=== PATIENT | female | born 2000 | race Caucasian/White ===

== ENCOUNTER → 2020-11-26 07:03 | Outpatient (CLI) | payer OTHER, SELFPAY ==
[2020-11-26 19:12] LABS: SARS-CoV-2 RNA PCR Negative
== END ==
PROVIDERS: PCP Pediatrics; Visit Provider Pediatrics
DX: Z20.822 Contact with and (suspected) exposure to COVID-19 (principal); R06.7 Sneezing
CPT/HCPCS: C9803; U0003; U0005

== ENCOUNTER → 2022-03-03 13:35 | Outpatient (CLI) | payer OTHER, SELFPAY ==
--- NOTE | ~2022-03-03 | CT_ITS ---
EXAMINATION: CT soft tissue neck wo con DATE: 03/03/2022 14:03 INDICATION: Dysphagia. TECHNIQUE: Computed tomography (CT) of the neck was performed without intravenous contrast. Automated exposure control and iterative reconstruction technique were employed. The dose-length product was 6 23.96 mGy-cm. COMPARISON: None FINDINGS: Motion artifact is noted. There are no pathologically enlarged lymph nodes. The pharynx and larynx are normal. The paranasal sinuses are clear. The mastoid air cells are normal. IMPRESSION: 1. No etiology for the patient's symptoms. Reviewed, dictated and finalized at location A.
== END ==
PROVIDERS: PCP Pediatrics; Visit Provider Otolaryngology
DX: R13.10 Dysphagia, unspecified (principal)
CPT/HCPCS: 70490

== ENCOUNTER 2022-03-07 10:19 | Outpatient (CLI) | payer OTHER, SELFPAY ==
--- NOTE | ~2022-03-07 | XR_ITS ---
EXAMINATION: XR barium swallow modified DATE: 03/07/2022 11:21 INDICATION: Dysphagia. TECHNIQUE: The patient was given barium-containing material of multiple consistencies to swallow by t katie speech pathologist while I performed fluoroscopy. Fluoroscopy exposure time was 1.0 minutes. The n umber of fluoroscopy images saved to the PACS was 1. Dose-area product was 1.304 Gy-cm^2. FINDINGS: There is reduced labial seal/lip tension. There is reduced lingual movement. There was uncontrolled b olus with premature spill. There is brief pooling in the pyriform sinuses with the swallow. There is intermittent laryngeal penetration. No aspiration. IMPRESSION: 1. Intermittent laryngeal penetration. No aspiration. 2. Please refer to the speech therapy report for recommendations. Reviewed, dictated and finalized at location A.
--- NOTE | 2022-03-07 12:26 | STOPEVAL ---
MODIFIED BARIUM SWALLOW EVALUATION: Thank you for referring Courtney Lal to [facility] [place] [facility] [place] Attending Provider: Bartolome Feldman MD fax: [phone] Referring Provider: Devyn Francois MD fax: [phone] Modified Barium Swallow Evaluation Recent Swallowing History Reports Dysphagia Yes: gagging and choking History of Dysphagia No Other Related History cerebral palsy History of Pneumonia No Reported Difficult Consistencies Unable to Identify Intake Method Prior to Swallow Oral Evaluation Diet Prior to Swallow Evaluation Regular, Level 7 Liquid Consistency Prior to Swallow Thin (0) Evaluation Consistency Solid Consistency Oral Preparatory Symptoms Loss of Bolus Control Oral Phase Symptoms Disturbed Lingual Movement, Uncontrolled Bolus Pharyngeal Phase Symptoms Within Functional Limits 8 Point Laryngeal Penetration-Aspiration Material Does Not Enter Airway Scale Cervical/Esophageal Symptoms Within Functional Limits Mixed Consistency Method of Presentation Spoon Oral Preparatory Symptoms Abnormal Bolus Hold,Loss of Bolus Control,Premature Spill Posterior Oral Phase Symptoms Disturbed Lingual Movement, Uncontrolled Bolus Pharyngeal Phase Symptoms Laryngeal Penetration 8 Point Laryngeal Penetration-Aspiration Material Enters the Airway, Scale Remains Above Vocal Folds, is Ejected Pharyngeal Phase Comments intermittent laryngeal penetration; no gross aspiration Cervical/Esophageal Symptoms Within Functional Limits Pureed Consistency Method of Presentation Spoon Oral Preparatory Symptoms Premature Spill Posterior Oral Phase Symptoms Disturbed Lingual Movement, Premature Spillage, Uncontrolled Bolus Pharyngeal Phase Symptoms Within Functional Limits 8 Point Laryngeal Penetration-Aspiration Material Does Not Enter Airway Scale Thin Uncontrolled 1 Other Amount cup and straw Method of Presentation Cup Oral Preparatory Symptoms Anterior Loss,Loss of Bolus Control,Premature Spill Posterior Oral Phase Symptoms Disturbed Lingual Movement, Premature Spillage, Uncontrolled Bolus Pharyngeal Phase Symptoms Laryngeal Penetration 8 Point Laryngeal Penetration-Aspiration Material Enters the Airway, Scale Remains Above Vocal Folds, is Ejected Pharyngeal Phase Comments intermittent laryngeal
== END 2022-03-07 10:20 | disposition home or self-care (01) ==
PROVIDERS: PCP Pediatrics; Visit Provider Otolaryngology
DX: R13.10 Dysphagia, unspecified (principal)
CPT/HCPCS: 92611

== ENCOUNTER 2022-05-19 18:09 | Observation (INO) | payer OTHER, SELFPAY ==
[2022-05-19] VITALS (22 sets, daily range): BP systolic 94–135; BP diastolic 57–93; PULSE 136–168; RESP 30–48; TEMP 36.9; O2SAT 84–100
--- NOTE | ~2022-05-19 | XR_ITS ---
EXAMINATION: XR chest 1V portable DATE: 05/19/2022 18:47 INDICATION: Shortness of breath. TECHNIQUE: A single frontal view of the chest was obtained on 2 radiographs. COMPARISON: Neck CT 03/03/2022 FINDINGS: The chest demonstrates clear lungs without pneumonia, pleural effusion, or pneumothorax. Th e heart size is normal. IMPRESSION: 1. No acute cardiopulmonary disease. Reviewed, dictated and finalized at location A.
--- NOTE | ~2022-05-19 | CT_ITS ---
EXAMINATION: CTA chest PE protocol DATE: 05/20/2022 13:25 INDICATION: Tachypnea and shortness of breath TECHNIQUE: Computed tomography angiography (CTA) of the chest was performed with 100 mL Omnipaque-350 intravenous contrast timed to evaluate the pulmonary arteries. Coronal maximum intensity projection 3D-reconstructions were created by the technologist. The dose-length product (DLP) was 164.29 mGy-cm. Automated exposure control and iterative reconstruction technique were employed. COMPARISON: None. FINDINGS: Respiratory motion artifact limits the examination. No central pulmonary embolus is identif ied. There are minimal retrocardiac airspace opacities of the left lower lobe. No pleural effusion or pneumothorax. No pathologically enlarged thoracic lymph nodes are identified. The heart size is norm al. IMPRESSION: 1. No central pulmonary embolus identified, sensitivity significantly limited by respiratory motion. 2. Minimal left lower lobe airspace opacity, consistent with atelectasis versus pneumonia. Reviewed, dictated and finalized at location A. IMPRESSION: 1. No central pulmonary embolus identified, sensitivity significantly limited b y respiratory motion. 2. Minimal left lower lobe airspace opacity, consistent with atelectasis versus pneumonia.
--- NOTE | ~2022-05-19 | XR_ITS ---
EXAMINATION: XR chest 1V portable DATE: 05/23/2022 06:40 INDICATION: Recheck of pneumonia TECHNIQUE: frontal view of the chest was obtained. COMPARISON: Chest radiograph dated 05/19/[address] dated 05/20/2022 FINDINGS: The lungs remain clear with no focal airspace opacities, pulmonary edema, pleural effusion or pneumot horax. Arch size is normal. There is increased prominence of the contour of the pulmonary outflow tra ct and enlargement of the central pulmonary arteries consistent with pulmonary arterial hypertension. Thoracic dextroscoliosis. IMPRESSION: 1. Enlargement of the central pulmonary arteries consistent with pulmonary arterial hypertension. Reviewed, dictated and finalized at location A. IMPRESSION: 1. Enlargement of the central pulmonary arteries consistent with pulmonary martha rial hypertension.
--- NOTE | 2022-05-19 18:25 | ED.SOB ---
HPI - SOB/Dyspnea General Chief Complaint: Shortness of Breath/Dyspnea Stated Complaint: sob Time Seen by Provider: 05/19/22 18:12 History of Present Illness HPI Narrative: Patient is a 21-year-old female with a history of cerebral palsy presenting with shortness of breath. Patient's mother reports that she has a long history of recurrent aspiration and she often wheezes when she breathes. Patient's mother states that for the last several days she has had nasal congestion and cough. Patient's mother states that she has had similar symptoms. Today, patient's mother gave her a breathing treatment which temporarily improved her breathing but then she began wheezing again so she came in for evaluation. Patient is nonverbal at baseline. Related Data Home Medications Medication Instructions Recorded Confirmed albuterol sulfate 0.63 mg/3 mL 0.63 mg inhalation Q6H 12/27/21 05/20/22 solution for nebulization alprazolam 0.5 mg tablet (Xanax) 0.5 mg PO QID PRN Respiratory 12/27/21 05/20/22 Distress buspirone 5 mg tablet 5 mg PO DAILY 12/27/21 05/20/22 fluticasone propionate 50 1 spray intranasal DAILY 12/27/21 05/20/22 mcg/actuation nasal spray,suspension norethindrone 1 mg-ethinyl 1 tablet PO DAILY 05/20/22 05/20/22 estradiol 20 mcg (21)-iron 75 mg (7) tablet ([place] Fe 08/18 (28)) Allergies Allergy/AdvReac Type Severity Reaction Status Date / Time aripiprazole Allergy Severe INSOMNIA Verified 01/19/22 00:32 chlorpheniramine AdvReac Severe INSOMNIA Verified 01/19/22 00:32 dextromethorphan AdvReac Severe INSOMNIA Verified 01/19/22 00:32 phenylephrine AdvReac Severe INSOMNIA Verified 01/19/22 00:32 sertraline AdvReac Severe INSOMNIA Verified 01/19/22 00:32 Review of Systems Review of Systems: ROS unobtainable: Yes other (nonverbal at baseline) [facility] Family History Family History (Updated 05/20/22 @ 00:37 by Kadi Roe RN) Mother Asthma Other Colon cancer Social History Social History (Updated 12/27/21 @ 11:42 by Ingrid Hairston MA) Smoking status: Never smoker Second hand tobacco smoke exposure: Yes Alcohol intake: never Substance use: never Spiritual care concerns: No Has the Lack of Transportation Kept You From Medical Appointments or From Getting Medications?: No Within the Past 12 Months, Were You Worried Whether Your Food Would Run Out Before You Got Money to Buy More?: Never True What is Your Housing Situation Today?: I Have Housing Are You Worried That in the Next 2 Months, You May Not Have Your Own Housing to Live In?: No Do You Have Trouble Paying Your Heating Or Electricity Bill?: No Do You Have Trouble Paying For Medicines?: No Are You Currently Unemployed and Looking for Work?: No Highest Level of Education Completed: High School Diploma/GED Do You Have Trouble With Childcare or the Care of a Family Member?: No Exam Narrative: GENERAL: ill appearing, alert, nonverbal HEAD: Normocephalic, atraumatic. EYES: PERRLA and EOMI. ENT: Nares clear, no rhinorrhea or epistaxis. Mucous membranes moist. NECK: Supple. CHEST: +wheezing, coarse breath sounds bilaterally. No respiratory distress. HEART: Regular rate and rhythm. No murmur heard. Normal peripheral pulses. ABDOMEN: Soft, nontender, nondistended, normal active bowel sounds. EXTREMITIES: Normal range of motion. No edema. SKIN: Warm, dry, no rash. NEURO: No focal deficits. at baseline PSYCH: Normal mood and affect. Course Course Emergency Course: Patient is a 21-year-old female presenting with shortness of breath. Patient tachycardic in the 150s to 160s but normotensive and saturating 90s. Patient is tachypneic and very wheezy. Breathing treatments and steroids ordered. Chest x-ray shows no acute abnormalities. Blood work with leukocytosis. Patient's respiratory effort has improved after steroids and breathing treatments but she still remains significantly tachypneic. EKG shows sinus tachyc
[2022-05-19] MEDS: ALBUTEROL SULFATE NEB 2.5 MG/3 ML INH 10 MG INHALATION ×2 (18:36→19:48)
[2022-05-19 18:37] LABS: Basophils Percent Auto 0.3 % (0.2-1.2); Eosinophils Absolute Auto 0.2 K/mm3 (0-0.3); Eosinophils Percent Auto 1.3 % (0-4.4); Hemoglobin 14.8 g/dL (12.0-15.0); Immature Granulocyte Absolute 0.04 K/mm3 (0.00-0.031); Immature Granulocyte Percent A 0.3 % (0-0.5); Lymphocytes Absolute Auto 1.36 K/mm3 (0.9-3.2); Lymphocytes Percent Auto 10.2 % (18.3-44.2); Mean Corpuscular HGB Conc 32.2 g/dl (32-36); Mean Corpuscular Hemoglobin 28.8 pg (26-34); Mean Corpuscular Volume 89.7 fl (80-100); Mean Platelet Volume 9.4 fl (7.4-10.4); Monocytes Absolute Auto 0.7 K/mm3 (0.1-0.6); Monocytes Percent Auto 5.6 % (2.6-8.5); Neutrophils Percent Auto 82.3 % (45.5-73.1); Platelet Count Result 252 k/mm3 (150-375); Red Blood Count 5.13 M/mm3 (4.2-5.4); Red Cell Distribution Width 12.4 % (11.5-14.5); White Blood Count 13.3 K/mm3 (4.5-10.0)
[2022-05-19] MEDS: IPRATROPIUM BR 0.02% INH SOLN 0.5 MG/2.5 ML VIAL INHALATION (18:37)
[2022-05-19 18:46] LABS: Alanine Aminotransferase 25 U/L (6-35); Albumin Level 4.5 g/dL (3.5-5.1); Alkaline Phosphatase 82 U/L (38-126); Anion Gap 14 mmol/L (8-16); Aspartate Amino Transferase 28 U/L (14-36); Bilirubin,Total 0.3 mg/dL (0.2-1.3); Blood Urea Nitrogen 5 mg/dL (7-17); Calcium 9.2 mg/dL (8.4-10.2); Carbon Dioxide 24 mmol/L (22-30); Chloride 106 mmol/L (98-107); Estimated Glomerular Filt Rate > 60; Glucose 149 mg/dL (65-110); Potassium 4.6 mmol/L (3.4-5.0); Sodium 144 mmol/L (137-145)
[2022-05-19] MEDS: SODIUM CHLORIDE 0.9% IV 1,000 ML 999 ML IV CONT ×2 (18:50→21:32)
[2022-05-19] MEDS: methylPREDNISolone SOD SUCC 125 MG VIAL IV PUSH (19:14)
[2022-05-19 19:16] LABS: Influenza A QL RT-PCR Negative (Negative); Influenza B QL RT-PCR Negative (Negative); SARS-CoV-2 RNA PCR Negative
[2022-05-19] MEDS: LORazepam INJ (*CRX) 2 MG/ML VIAL 1 MG IV PUSH ×2 (20:04→21:29)
[2022-05-19] MEDS: LIDOCAINE/PRILOCAINE CREAM 2.5-2.5% TUBE 1 EACH TOPICAL (20:10)
[2022-05-19 20:32] LABS: Fractional Inspired Oxygen 40 %; HCO3 VBG 15.4 mEq/l (24.0-30.0); PO2 VBG 58.1 mmHg (35.0-45.0); pH VBG 7.341 (7.300-7.400)
[2022-05-19 20:33] LABS: PCO2 VBG 29.1 mmHg (42.0-48.0)
[2022-05-19 20:34] LABS: Device OTHER DEVICE
--- NOTE | 2022-05-19 21:20 | ECG_ITS ---
Measurements Intervals [place] Rate: 143 P: 87 IL: 79 QRS: 131 QRSD: 101 T: -11 QT: 304 QTc: 469 Interpretive Statements SINUS TACHYCARDIA WITH SHORT IL INTERVAL, POSSIBLE ATRIAL FLUTTER OR ATRIAL TACHYCARDIA RIGHT AXIS DEVIATION [QRS AXIS > 100] INCOMPLETE RIGHT BUNDLE BRANCH BLOCK [90+ ms QRS DURATION, TERMINAL R IN V1/V2, 40+ ms S IN I/aVL/V4/V5/V6] ST DEVIATION AND MODERATE T-WAVE ABNORMALITY, CONSIDER LATERAL ISCHEMIA [-0.1+ mV T- WAVE IN I/aVL/V5/V6] ST DEVIATION AND MODERATE T-WAVE ABNORMALITY, CONSIDER INFERIOR ISCHEMIA [-0.1+ mV T- WAVE IN II/aVF] NO PREVIOUS ECG AVAILABLE FOR COMPARISON Electronically Signed On 05-20-2022 8:59:45 CDT by Karen Barbour M.D.
--- NOTE | 2022-05-19 21:44 | PM.IMHP ---
H&P: HPI History of Present Illness Date/Time: 05/19/22 21:44 Chief Complaint: shortness of breath. Narrative: This is a 21-year-old female with past medical history significant for cerebral palsy, patient is wheelchair-bound, recurrent aspiration, asthma. Was brought today to the emergency room due to progressively worsening shortness of breath for the last 2 days or so with nasal congestion, use of accessory muscles, did not improve with breathing treatments or temporary relieve. no fevers, no rigors, no chills, no nausea, vomiting, diarrhea. in emergency room patient received breathing treatment with improvement. Patient is unable to give any history which has been obtained from mom who is at bedside. a chest x-ray was reported as: IMPRESSION: 1. No acute cardiopulmonary disease. patient is been admitted for further evaluation management and treatment Review of Systems Review of Systems: ROS unobtainable: Yes unobtainable due to medical condition ( cerebral palsy with cognitive developmental delay and speech disturbance) ON LICENSE OF [facility] Family History Family History (Updated 05/20/22 @ 00:37 by Kadi Roe RN) Mother Asthma Other Colon cancer Social History Social History (Updated 12/27/21 @ 11:42 by Ingrid Hairston MA) Smoking status: Never smoker Second hand tobacco smoke exposure: Yes Alcohol intake: never Substance use: never Spiritual care concerns: No Has the Lack of Transportation Kept You From Medical Appointments or From Getting Medications?: No Within the Past 12 Months, Were You Worried Whether Your Food Would Run Out Before You Got Money to Buy More?: Never True What is Your Housing Situation Today?: I Have Housing Are You Worried That in the Next 2 Months, You May Not Have Your Own Housing to Live In?: No Do You Have Trouble Paying Your Heating Or Electricity Bill?: No Do You Have Trouble Paying For Medicines?: No Are You Currently Unemployed and Looking for Work?: No Highest Level of Education Completed: High School Diploma/GED Do You Have Trouble With Childcare or the Care of a Family Member?: No Meds Home Medications and Allergies Home Medications Medication Instructions Recorded Confirmed Type albuterol sulfate 0.63 mg/3 mL 0.63 mg (3 mL) inhalation Q6H PRN 12/27/21 12/27/21 Rx solution for nebulization shortness of breath or wheezing #75 mL albuterol sulfate 0.63 mg/3 mL 0.63 mg inhalation Q6H 12/27/21 12/27/21 History solution for nebulization alprazolam 0.5 mg tablet (Xanax) 0.5 mg PO TID PRN Respiratory 12/27/21 12/27/21 History Distress buspirone 5 mg tablet 5 mg PO DAILY 12/27/21 12/27/21 History fluticasone propionate 50 1 spray intranasal DAILY PRN 12/27/21 12/27/21 History mcg/actuation nasal Allergic Symptoms spray,suspension Allergies Allergy/AdvReac Type Severity Reaction Status Date / Time aripiprazole Allergy Severe INSOMNIA Verified 01/19/22 00:32 chlorpheniramine AdvReac Severe INSOMNIA Verified 01/19/22 00:32 dextromethorphan AdvReac Severe INSOMNIA Verified 01/19/22 00:32 phenylephrine AdvReac Severe INSOMNIA Verified 01/19/22 00:32 sertraline AdvReac Severe INSOMNIA Verified 01/19/22 00:32 Vital Signs Vital Signs - 24 hr 05/19/22 18:35 05/19/22 18:30 05/19/22 18:30 Temperature 98.4 F Pulse Rate 154 H 136 H Respiratory Rate 36 H 34 H Blood Pressure 128/85 Pulse Oximetry 84 L 100 Oxygen Delivery Room Air Non-Rebreather Mask Oxygen Flow Rate 15 05/19/22 18:46 05/19/22 18:29 05/19/22 18:30 Temperature Pulse Rate 136 H 145 H 141 H Respiratory Rate 40 H 41 H Blood Pressure Pulse Oximetry 100 100 Oxygen Delivery Oxygen Flow Rate 05/19/22 18:31 05/19/22 18:45 05/19/22 18:46 Temperature Pulse Rate 145 H 167 H 167 H Respiratory Rate 38 H 45 H 48 H Blood Pressure 128/85 108/69 Pulse Oximetry 100 99 100 Oxygen Delivery Oxygen Flow Rate 05/19/22 19:00
[2022-05-19] MEDS: ADENOSINE IV SOLN 6 MG/2 ML VIAL IV PUSH (22:31)
[2022-05-19] MEDS: MAGNESIUM SULF 2 GM/WATER 50ML 2 GM/50 ML BAG IVPB (22:37)
[2022-05-20] VITALS (19 sets, daily range): BP systolic 116–129; BP diastolic 57–78; PULSE 109–137; RESP 16–28; TEMP 36.6–36.9; O2SAT 92–99
--- NOTE | 2022-05-20 00:26 | ADMGEN ---
This patient, Courtney Lal, was admitted to Medical Room 241-01. Patient/family oriented to hospital policies and general routines including ID bracelet, bed and alarms, visiting hours, pain management, procedures, bathroom and other care routines, personal items, smoking policy, room service/diet, and visiting hours. Information on how to activate the Rapid Response Team has been discussed. Patient/Family are encouraged to report perceived risks to care and to ask questions if they do not understand what they are told or what they should do.
[2022-05-20] MEDS: IPRATROPIUM BR 0.02% INH SOLN 0.5 MG/2.5 ML VIAL INHALATION ×4 (01:50→20:23)
[2022-05-20] MEDS: ALBUTEROL SULFATE NEB 2.5 MG/3 ML INH 5 MG INHALATION ×2 (01:50→09:10)
[2022-05-20] MEDS: SODIUM CHLORIDE 0.9% IV 1,000 ML 125 ML IV CONT ×2 (01:55→11:32)
[2022-05-20] MEDS: KETOROLAC 15 MG/ML VIAL (*BKC) IV PUSH (02:21)
[2022-05-20] MEDS: methylPREDNISolone SOD SUCC 125 MG VIAL 60 MG IV PUSH ×4 (05:20→17:42)
[2022-05-20 07:11] LABS: Basophils Percent Auto 0.1 % (0.2-1.2); Hematocrit 35.4 % (37.0-47.0); Hemoglobin 11.5 g/dL (12.0-15.0); Immature Granulocyte Absolute 0.03 K/mm3 (0.00-0.031); Immature Granulocyte Percent A 0.3 % (0-0.5); Lymphocytes Absolute Auto 0.77 K/mm3 (0.9-3.2); Lymphocytes Percent Auto 8.9 % (18.3-44.2); Mean Corpuscular HGB Conc 32.5 g/dl (32-36); Mean Corpuscular Hemoglobin 28.9 pg (26-34); Mean Corpuscular Volume 88.9 fl (80-100); Mean Platelet Volume 9.2 fl (7.4-10.4); Monocytes Absolute Auto 0.1 K/mm3 (0.1-0.6); Neutrophils Absolute Auto 7.8 K/mm3 (1.3-6.7); Neutrophils Percent Auto 89.7 % (45.5-73.1); Platelet Count Result 199 k/mm3 (150-375); Red Blood Count 3.98 M/mm3 (4.2-5.4); Red Cell Distribution Width 12.7 % (11.5-14.5); White Blood Count 8.7 K/mm3 (4.5-10.0)
[2022-05-20 07:22] LABS: Alanine Aminotransferase 17 U/L (6-35); Albumin Level 3.6 g/dL (3.5-5.1); Alkaline Phosphatase 63 U/L (38-126); Anion Gap 12 mmol/L (8-16); Aspartate Amino Transferase 21 U/L (14-36); Bilirubin,Total 0.2 mg/dL (0.2-1.3); Blood Urea Nitrogen 3 mg/dL (7-17); Calcium 8.4 mg/dL (8.4-10.2); Carbon Dioxide 13 mmol/L (22-30); Chloride 113 mmol/L (98-107); Estimated Glomerular Filt Rate > 60; Glucose 164 mg/dL (65-110); Magnesium 2.1 mg/dL (1.6-2.3); Potassium 3.8 mmol/L (3.4-5.0); Sodium 138 mmol/L (137-145)
--- NOTE | 2022-05-20 11:20 | PM.IMPN ---
Progress Note: A&P Assessment and Plan (1) Asthma: Code(s): J45.909 - Unspecified asthma, uncomplicated Status: Acute Assessment and Plan: Acute on chronic exacerbation as evidenced by wheezing throughout all lung polk. Continue scheduled Atrovent and albuterol. Continue Solu-Medrol 60 mg q.[address] of chest. Supplement oxygen as needed. Monitor labs and vital signs (2) Cerebral palsy: Code(s): G80.9 - Cerebral palsy, unspecified Status: Chronic Assessment and Plan: Chronic since Bed/Wheelchair bound. (3) Chest congestion: Code(s): R09.89 - Other specified symptoms and signs involving the circulatory and respiratory systems Status: Acute Assessment and Plan: CTA of chest to be performed. (4) Tachycardia: Code(s): R00.0 - Tachycardia, unspecified Status: Acute Assessment and Plan: Persistent, start Metoprolol 12.5 mg daily. Secondary to risk of increased Bronchoconstriction, will defer any further dosing of Beta Blockers to Cardiology if need be. Will place consult as needed. CTA PE protocol for Wells' PE score of 4.5, and unable to PERC out. High risk for DVT/PE secondary to her bedridden status. Continue Telemetry Continue to monitor labs and VS. Time Spent With Patient Time with patient: 15 - 25 minutes Subjective Date/time seen: 05/20/22 1010 This pt. was examined at the bedside today in interval assessment after being admitted to the hospital from home with dyspnea of two days, increased work of breathing and overt tachycardia as documented. She has a significant PMH of Asthma and she has also had a history of Aspiration according to the ER provider documentation. Pt. is non-verbal at baseline, but does acknowledge me and smiles. She remains tachycardic in the 120s-140s. She was administered Adenosine in ER to attempt to control tachycardia, but it was short lived in it's effect. Pt. still has overt tachycardia and does appear to be somewhat dyspneic with audible wheezing. Her home medications were re-ordered. At this time, with her symptoms, her Wells' PE score is moderate at 4.5, and I cannot PERC her out using the PERC rule. Therefore, pt. is going to be given Ativan [address] PE protocol is ordered to rule out PE. In addition, she is being started on a low dose of Metoprolol Succinate at 12.5 mg po daily. The benefit of potential control of her Tachycardia outweighs the possible side effects of the medication at this point. Would like to give Ivabradine, however, we do not have it here on our formulary. If necessary for better rate control, will involve Cardiology for their recommendations. Grandmother is at the bedside and denies any history of Tachycardia to her knowledge. Review of Systems Review of Systems: ROS unobtainable: Yes unobtainable due to medical condition (Pt. is mostly non-verbal. Unable to obtain ROS.) Exam Const: General: comfortable and no acute distress Other: thin, nonverbal patient lying supine in bed at this time. HENMT: Face/Nose/Sinus: Normal nares present Mouth: Yes moist mucous membranes Eyes: General: appearance normal, both eyes and all related structures Sclera: sclerae normal Pupils: Equal, round and reactive pupils present EOM: EOMs intact bilaterally Neck: Neck: supple and no JVD Resp: Effort & Inspection: abnormal respiratory effort (Mild tachypnea present) Auscultation: wheezes expiratory wheezes, inspiratory wheezes and throughout (Throughout all lobes.) Cardio: Rate: tachycardic Rhythm: regular rhythm Heart sounds: no gallops, no murmurs and no rubs GI: Inspection: non-distended GI Palp: Yes Soft to palpation, No Tenderness to palpation present (GI) and No Guarding due to palpation present (GI) Auscultation: normal bowel sounds Skin: General skin exam: normal color, no rashes or lesions noted and no erythema Lesions: no lesions noted Rashe
[2022-05-20] MEDS: FLUTICASONE PROPIONATE 0.05% NA SPR 16 GM BTL (*BKC) 1 SPRAY NASAL (11:33)
[2022-05-20] MEDS: busPIRone HCL 5 MG TABLET PO (11:34)
[2022-05-20 12:23] LABS: SPREG INTERNAL CONTROL Positive; Serum Qual hCG Negative
[2022-05-20] MEDS: LORazepam INJ (*CRX) 2 MG/ML VIAL 1 MG IV PUSH (12:51)
[2022-05-20] MEDS: METOPROLOL SUCCINATE EXT REL 12.5 MG TABCR PO (14:08)
[2022-05-20] MEDS: SODIUM CHLORIDE 0.9% IV 1,000 ML 75 ML IV CONT (14:12)
[2022-05-20] MEDS: ALBUTEROL SULFATE NEB 2.5 MG/3 ML INH INHALATION ×2 (14:59→20:22)
[2022-05-20] MEDS: ALPRAZolam (*CRX) 0.5 MG TABLET PO (16:48)
--- NOTE | 2022-05-20 17:22 | PHAR ---
PT'S HOME MED BLISOVI FE 08/18 TABS VERIFIED BY PHARMACY
[2022-05-21] VITALS (17 sets, daily range): BP systolic 110–138; BP diastolic 55–75; PULSE 54–136; RESP 18–22; TEMP 36.4–36.8; O2SAT 95–98
[2022-05-21] MEDS: ALBUTEROL SULFATE NEB 2.5 MG/3 ML INH INHALATION ×4 (01:49→20:56)
[2022-05-21] MEDS: IPRATROPIUM BR 0.02% INH SOLN 0.5 MG/2.5 ML VIAL INHALATION ×4 (01:49→20:56)
[2022-05-21] MEDS: SODIUM CHLORIDE 0.9% IV 1,000 ML 75 ML IV CONT ×2 (04:17→17:54)
[2022-05-21 05:27] LABS: Basophils Percent Auto 0.1 % (0.2-1.2); Hematocrit 37.1 % (37.0-47.0); Hemoglobin 12.1 g/dL (12.0-15.0); Immature Granulocyte Absolute 0.28 K/mm3 (0.00-0.031); Immature Granulocyte Percent A 1.2 % (0-0.5); Lymphocytes Absolute Auto 1.47 K/mm3 (0.9-3.2); Lymphocytes Percent Auto 6.4 % (18.3-44.2); Mean Corpuscular HGB Conc 32.6 g/dl (32-36); Mean Corpuscular Hemoglobin 28.5 pg (26-34); Mean Corpuscular Volume 87.3 fl (80-100); Mean Platelet Volume 9.7 fl (7.4-10.4); Monocytes Absolute Auto 0.2 K/mm3 (0.1-0.6); Monocytes Percent Auto 0.7 % (2.6-8.5); Neutrophils Absolute Auto 20.9 K/mm3 (1.3-6.7); Neutrophils Percent Auto 91.6 % (45.5-73.1); Platelet Count Result 232 k/mm3 (150-375); Red Blood Count 4.25 M/mm3 (4.2-5.4); White Blood Count 22.9 K/mm3 (4.5-10.0)
[2022-05-21 05:35] LABS: Lactic Acid Reflex 1.3 mmol/L (0.7-2.0)
[2022-05-21 05:41] LABS: Alanine Aminotransferase 16 U/L (6-35); Albumin Level 3.5 g/dL (3.5-5.1); Alkaline Phosphatase 54 U/L (38-126); Anion Gap 8 mmol/L (8-16); Aspartate Amino Transferase 21 U/L (14-36); Bilirubin,Total 0.3 mg/dL (0.2-1.3); Blood Urea Nitrogen 5 mg/dL (7-17); Calcium 8.1 mg/dL (8.4-10.2); Carbon Dioxide 19 mmol/L (22-30); Chloride 109 mmol/L (98-107); Estimated Glomerular Filt Rate > 60; Glucose 145 mg/dL (65-110); Potassium 4.9 mmol/L (3.4-5.0); Sodium 136 mmol/L (137-145)
[2022-05-21] MEDS: methylPREDNISolone SOD SUCC 125 MG VIAL 60 MG IV PUSH ×4 (06:07→23:49)
[2022-05-21] MEDS: METOPROLOL SUCCINATE EXT REL 12.5 MG TABCR PO (09:12)
[2022-05-21] MEDS: FLUTICASONE PROPIONATE 0.05% NA SPR 16 GM BTL (*BKC) 1 SPRAY NASAL (09:13)
[2022-05-21] MEDS: busPIRone HCL 5 MG TABLET PO (09:13)
[2022-05-21] MEDS: ALPRAZolam (*CRX) 0.5 MG TABLET PO ×2 (10:37→20:50)
--- NOTE | 2022-05-21 12:29 | PM.IMPN ---
Progress Note: A&P Assessment and Plan (1) Asthma: Code(s): J45.909 - Unspecified asthma, uncomplicated Status: Acute Assessment and Plan: Making overall improvement today. Acute on chronic exacerbation as evidenced by wheezing throughout all lung polk. Continue scheduled Atrovent and albuterol. Continue Solu-Medrol 60 mg q.6 hours, plan to change to oral steroid taper starting tomorrow. Supplemental oxygen has been discontinued. Monitor labs and vital signs (2) Cerebral palsy: Code(s): G80.9 - Cerebral palsy, unspecified Status: Chronic Assessment and Plan: Chronic since Bed/Wheelchair bound. (3) Chest congestion: Code(s): R09.89 - Other specified symptoms and signs involving the circulatory and respiratory systems Status: Acute Assessment and Plan: CTA of chest demonstrated minimal LLL opacity consistent with atelectasis or PNA. (4) Tachycardia: Code(s): R00.0 - Tachycardia, unspecified Status: Acute Assessment and Plan: Much improved after starting Metoprolol 12.5 mg yesterday. Pulse ranging 80s-1-teens. Secondary to risk of increased Bronchoconstriction, will defer any further dosing of Beta Blockers to Cardiology if need be. Will place consult as needed. Deferring today as pt. appears to be improving. CTA PE protocol for Wells' PE score of 4.5, and unable to PERC out. CTA PE protocol was negative for PE. High risk for DVT/PE secondary to her bedridden status. SCD's for prophylaxis. Continue Telemetry Continue to monitor labs and VS. Time Spent With Patient Time with patient: 15 - 25 minutes Subjective Date/time seen: 05/21/22 0900 Pt. was examined at the bedside today in interval assessment and appears to be physically doing better. Her oxygen has been weaned off and she is maintaining her sats >97% on room air today. In addition, after starting her low dose of Metoprolol and abx, her pulse has been improved and most time has been normal, with occasional increases into the 1-teens. She has eaten well today and she has no signs of distress. She is sitting up, smiling and interacting appropriately. Will be continuing the same plan today with transition to oral steroid taper tomorrow. Family is at the bedside and has no new concerns today either. Review of Systems Review of Systems: All systems reviewed & are unremarkable except as noted in HPI and below Exam Const: General: comfortable and no acute distress Other: thin, nonverbal patient lying supine in bed at this time. HENMT: Face/Nose/Sinus: Normal nares present Mouth: Yes moist mucous membranes Eyes: General: appearance normal, both eyes and all related structures Sclera: sclerae normal Pupils: Equal, round and reactive pupils present EOM: EOMs intact bilaterally Neck: Neck: supple and no JVD Resp: Effort & Inspection: abnormal respiratory effort (Mild tachypnea present) Auscultation: wheezes expiratory wheezes, inspiratory wheezes and throughout (Throughout all lobes.) Cardio: Rate: regular rate Rhythm: regular rhythm Heart sounds: no gallops, no murmurs and no rubs GI: Inspection: non-distended Auscultation: normal bowel sounds Skin: General skin exam: normal color, no rashes or lesions noted, no erythema, No lesion noted and No rashes noted Lesions: no lesions noted Rashes: no rashes noted Wounds: no wounds Neuro: General: No gait normal (Bed/Chair bound) Cranial nerves: Yes Equal, round and reactive pupils present Speech: No normal speech (Mostly non-verbal. Pt. does vocalize, but does not form words.) Sensory Exam: normal sensation Extrem: General: normal to inspection, no edema and no pedal edema Psych: Other: Unable to assess. Objective Data Vital Signs Vital Signs: Vital Signs - 24 hr 05/20/22 14:08 05/20/22 14:05 05/20/22 15:00 Temperature 97.9 F Pulse Rate 113 H 112 H 122 H Respiratory Rate 18 Blood Pres
[2022-05-22] VITALS (18 sets, daily range): BP systolic 119–127; BP diastolic 72–84; PULSE 81–115; RESP 18–22; TEMP 36.4–36.6; O2SAT 92–99
--- NOTE | 2022-05-22 05:45 | PCRCNOTE ---
Mother of patient refused her 0200 treatment, wanting to let her sleep throughout the night. Treatment to resume at 0800.
[2022-05-22 06:00] LABS: Basophils Percent Auto 0.1 % (0.2-1.2); Hematocrit 35.3 % (37.0-47.0); Hemoglobin 11.3 g/dL (12.0-15.0); Immature Granulocyte Absolute 0.15 K/mm3 (0.00-0.031); Immature Granulocyte Percent A 0.9 % (0-0.5); Lymphocytes Absolute Auto 1.48 K/mm3 (0.9-3.2); Lymphocytes Percent Auto 8.9 % (18.3-44.2); Mean Corpuscular Hemoglobin 28.3 pg (26-34); Mean Corpuscular Volume 88.5 fl (80-100); Mean Platelet Volume 9.9 fl (7.4-10.4); Monocytes Absolute Auto 0.2 K/mm3 (0.1-0.6); Monocytes Percent Auto 1.1 % (2.6-8.5); Neutrophils Absolute Auto 14.7 K/mm3 (1.3-6.7); Platelet Count Result 250 k/mm3 (150-375); Red Blood Count 3.99 M/mm3 (4.2-5.4); White Blood Count 16.6 K/mm3 (4.5-10.0)
[2022-05-22 06:10] LABS: Alanine Aminotransferase 18 U/L (6-35); Albumin Level 3.4 g/dL (3.5-5.1); Alkaline Phosphatase 52 U/L (38-126); Anion Gap 8 mmol/L (8-16); Aspartate Amino Transferase 19 U/L (14-36); Bilirubin,Total 0.2 mg/dL (0.2-1.3); Blood Urea Nitrogen 9 mg/dL (7-17); Calcium 8.1 mg/dL (8.4-10.2); Carbon Dioxide 21 mmol/L (22-30); Chloride 108 mmol/L (98-107); Estimated Glomerular Filt Rate > 60; Glucose 135 mg/dL (65-110); Magnesium 1.9 mg/dL (1.6-2.3); Potassium 4.2 mmol/L (3.4-5.0); Sodium 137 mmol/L (137-145)
[2022-05-22] MEDS: methylPREDNISolone SOD SUCC 125 MG VIAL 60 MG IV PUSH (06:27)
[2022-05-22] MEDS: SODIUM CHLORIDE 0.9% IV 1,000 ML 75 ML IV CONT ×2 (06:30→20:33)
[2022-05-22] MEDS: predniSONE 20 MG TABLET 40 MG PO (08:36)
[2022-05-22] MEDS: FLUTICASONE PROPIONATE 0.05% NA SPR 16 GM BTL (*BKC) 1 SPRAY NASAL (08:36)
[2022-05-22] MEDS: busPIRone HCL 5 MG TABLET PO (08:36)
[2022-05-22] MEDS: ALPRAZolam (*CRX) 0.5 MG TABLET PO ×2 (08:39→20:32)
[2022-05-22] MEDS: IPRATROPIUM BR 0.02% INH SOLN 0.5 MG/2.5 ML VIAL INHALATION ×3 (08:49→20:26)
[2022-05-22] MEDS: ALBUTEROL SULFATE NEB 2.5 MG/3 ML INH INHALATION ×3 (08:50→20:26)
[2022-05-22] MEDS: METOPROLOL SUCCINATE EXT REL 12.5 MG TABCR PO (09:41)
--- NOTE | 2022-05-22 12:05 | PM.IMPN ---
Progress Note: A&P Assessment and Plan (1) Pneumonia: Code(s): J18.9 - Pneumonia, unspecified organism Status: Acute Assessment and Plan: Presumptive treatment of PNA based upon findings of CT Scan. Pt. was treated with Rocephin and Azithromycin. Interval improvment physically. Will confirm with imaging in AM to plan for discharge. (2) Asthma: Code(s): J45.909 - Unspecified asthma, uncomplicated Status: Acute Assessment and Plan: Making overall improvement today. Wheezing is resolved. Continue scheduled Atrovent and albuterol. IV steroids discontinued and oral started today at 40 mg and will taper upon discharge which I suspicion will be tomorrow. Supplemental oxygen has been discontinued. Monitor labs and vital signs (3) Cerebral palsy: Code(s): G80.9 - Cerebral palsy, unspecified Status: Chronic Assessment and Plan: Chronic since Bed/Wheelchair bound. (4) Chest congestion: Code(s): R09.89 - Other specified symptoms and signs involving the circulatory and respiratory systems Status: Acute Assessment and Plan: CTA of chest demonstrated minimal LLL opacity consistent with atelectasis or PNA. Treated for PNA with IV abx, will repeat CXR in AM to assess readiness for discharge. (5) Tachycardia: Code(s): R00.0 - Tachycardia, unspecified Status: Acute Assessment and Plan: Much improved after starting Metoprolol 12.5 mg yesterday. Pulse ranging 80s-1-teens. Secondary to risk of increased Bronchoconstriction, will defer any further dosing of Beta Blockers to Cardiology if need be. Will place consult as needed. Deferring today as pt. appears to be improving. CTA PE protocol for Wells' PE score of 4.5, and unable to PERC out. CTA PE protocol was negative for PE. High risk for DVT/PE secondary to her bedridden status. SCD's for prophylaxis. Continue Telemetry Continue to monitor labs and VS. Time Spent With Patient Time with patient: 15 - 25 minutes Subjective Date/time seen: 05/22/22 1000 This pt. is examined at the bedside today and is found to be sleeping soundly without any audible wheezing, rhonchi or other abnormal breath sound. She has no cough and appears to be comfortable without any distress. Her WBC count has improved and her breathing has as well. She remains off of oxygen. She is still on abx. Review of Systems Review of Systems: ROS unobtainable: Yes unobtainable due to medical condition Exam Const: General: comfortable and no acute distress Other: thin, nonverbal patient lying supine in bed at this time. HENMT: Face/Nose/Sinus: Normal nares present Mouth: Yes moist mucous membranes Eyes: General: appearance normal, both eyes and all related structures Sclera: sclerae normal Pupils: Equal, round and reactive pupils present EOM: EOMs intact bilaterally Neck: Neck: supple and no JVD Resp: Effort & Inspection: abnormal respiratory effort (Mild tachypnea present) Auscultation: clear to auscultation bilaterally Cardio: Rate: regular rate and tachycardic Rhythm: regular rhythm Heart sounds: no gallops, no murmurs and no rubs GI: Inspection: non-distended Auscultation: normal bowel sounds Skin: General skin exam: normal color, no rashes or lesions noted, no erythema, No lesion noted and No rashes noted Lesions: no lesions noted Rashes: no rashes noted Wounds: no wounds Neuro: General: No gait normal (Bed/Chair bound) Cranial nerves: Yes Equal, round and reactive pupils present Speech: No normal speech (Mostly non-verbal. Pt. does vocalize, but does not form words.) Sensory Exam: normal sensation Extrem: General: normal to inspection, no edema and no pedal edema Psych: Other: Unable to assess. Objective Data Vital Signs Vital Signs: Vital Signs - 24 hr 05/21/22 13:10 05/21/22 14:00 05/21/22 16:00 Temperature 98.0 F Pulse Rate 119 H 127 H 136 H Respir
[2022-05-23] VITALS: PULSE 87
[2022-05-23] MEDS: ALBUTEROL SULFATE NEB 2.5 MG/3 ML INH INHALATION ×2 (02:00→07:42)
[2022-05-23] MEDS: IPRATROPIUM BR 0.02% INH SOLN 0.5 MG/2.5 ML VIAL INHALATION ×2 (02:00→07:42)
[2022-05-23 02:02] VITALS: PULSE 93; RESP 16
[2022-05-23 02:16] VITALS: PULSE 95; RESP 16
[2022-05-23 04:00] VITALS: PULSE 95
[2022-05-23 05:05] VITALS: BP 118/59; PULSE 82; RESP 18; TEMP 36.2; O2SAT 99
[2022-05-23 06:24] LABS: Basophils Percent Auto 0.1 % (0.2-1.2); Hematocrit 34.4 % (37.0-47.0); Immature Granulocyte Absolute 0.06 K/mm3 (0.00-0.031); Immature Granulocyte Percent A 0.5 % (0-0.5); Lymphocytes Absolute Auto 2.89 K/mm3 (0.9-3.2); Lymphocytes Percent Auto 23.1 % (18.3-44.2); Mean Corpuscular Hemoglobin 28.3 pg (26-34); Mean Corpuscular Volume 88.4 fl (80-100); Mean Platelet Volume 9.5 fl (7.4-10.4); Monocytes Absolute Auto 0.9 K/mm3 (0.1-0.6); Monocytes Percent Auto 6.9 % (2.6-8.5); Neutrophils Absolute Auto 8.7 K/mm3 (1.3-6.7); Neutrophils Percent Auto 69.4 % (45.5-73.1); Platelet Count Result 236 k/mm3 (150-375); Red Blood Count 3.89 M/mm3 (4.2-5.4); White Blood Count 12.5 K/mm3 (4.5-10.0)
[2022-05-23 06:46] LABS: Alanine Aminotransferase 25 U/L (6-35); Alkaline Phosphatase 46 U/L (38-126); Anion Gap 9 mmol/L (8-16); Aspartate Amino Transferase 22 U/L (14-36); Bilirubin,Total 0.4 mg/dL (0.2-1.3); Blood Urea Nitrogen 13 mg/dL (7-17); Calcium 7.5 mg/dL (8.4-10.2); Carbon Dioxide 20 mmol/L (22-30); Chloride 107 mmol/L (98-107); Estimated Glomerular Filt Rate > 60; Glucose 86 mg/dL (65-110); Sodium 136 mmol/L (137-145)
--- NOTE | 2022-05-23 07:07 | PM.DS ---
DS: Admitting Diagnosis Discharge Date 05/23/2022 Admitting Diagnosis Asthma, Cerebral Palsy, Chest Congestion DS: Discharge Diagnosis Discharge Diagnosis Plan (1) Pneumonia: ?Code(s): J18.9 - Pneumonia, unspecified organism ?Status:?Acute ?Assessment and Plan: Presumptive treatment of PNA based upon findings of CT Scan. Pt. was treated with Rocephin and Azithromycin. Interval improvement physically. Will confirm with imaging in AM to plan for discharge. (2) Asthma: ?Code(s): J45.909 - Unspecified asthma, uncomplicated ?Status:?Acute ?Assessment and Plan: ? Making overall improvement today. ? Wheezing is resolved. ? Continue scheduled Atrovent and albuterol. ? IV steroids discontinued and oral started today at 40 mg and will taper upon discharge which I suspicion will be tomorrow. ? Supplemental oxygen has been discontinued. ? Monitor labs and vital signs (3) Cerebral palsy: ?Code(s): G80.9 - Cerebral palsy, unspecified ?Status:?Chronic ?Assessment and Plan: Chronic since Bed/Wheelchair bound. (4) Chest congestion: ?Code(s): R09.89 - Other specified symptoms and signs involving the circulatory and respiratory systems ?Status:?Acute ?Assessment and Plan: CTA of chest demonstrated minimal LLL opacity consistent with atelectasis or PNA. Treated for PNA with IV abx, will repeat CXR in AM to assess readiness for discharge. (5) Tachycardia: ?Code(s): R00.0 - Tachycardia, unspecified ?Status:?Acute ?Assessment and Plan: Much improved after starting Metoprolol 12.5 mg yesterday. Pulse ranging 80s-1-teens. Secondary to risk of increased Bronchoconstriction, will defer any further dosing of Beta Blockers to Cardiology if need be. Will place consult as needed. Deferring today as pt. appears to be improving. CTA PE protocol for Wells' PE score of 4.5, and unable to PERC out. CTA PE protocol was negative for PE. High risk for DVT/PE secondary to her bedridden status. SCD's for prophylaxis. Continue Telemetry Continue to monitor labs and VS.Time Spent With Patient Time with patient: 15 - 25 minutes DS: Summary Hospital Course Reason for hospitalization: Dyspnea Hospital Course: This 21 year old female patient with significant PMH of Cerebral palsy who is wheel chair bound, asthma and has recurrent aspiration was admitted on 05/19/22 after presenting to the ER with complaints of increasing dyspnea, cough and tachycardia. Initial imaging was negative for any acute infection, but suspicious for atelectasis, and the initial dx of asthma exacerbation. She was admitted for symptomatic management with heart rate maintaining in the 120s-130s. CTA of chest was performed and was negative for PE, but did reveal a PNA. She was started on Azithromycin and Rocephin and completed 3 days of an IV course before being switched to oral. In addition, she received IV solumedrol 60 mg IVP for 2 days and then transitioned to oral Prednisone. She has been weaned from her oxygen and her lung sounds have made significant improvement. For her persistent Tachycardia, a trial of low dose Metoprolol was started with caution to watch for additional bronchoconstriction, but pt has tolerated nicely without any increased bronchoconstriction and her pulse has been maintained 80s-low 100s. Her overall hospital course has been favorable and she is stable for discharge at this time. Status at Discharge Functional status at discharge: wheelchair bound Overall status at discharge: patient is back to baseline Time Spent with Patient Time attestation: Total time spent providing and/or coordinating discharge services: Time spent: Greater than 30 minutes Specific discharge activities: Discharge instructions, medication changes/additions, follow up. Exam Narrative: Const:?? General: comfortab le and no acute di stress? Other: ?t
[2022-05-23] MEDS: predniSONE 20 MG TABLET 40 MG PO (08:31)
[2022-05-23] MEDS: METOPROLOL SUCCINATE EXT REL 12.5 MG TABCR PO (08:31)
[2022-05-23] MEDS: FLUTICASONE PROPIONATE 0.05% NA SPR 16 GM BTL (*BKC) 1 SPRAY NASAL (08:31)
[2022-05-23] MEDS: busPIRone HCL 5 MG TABLET PO (08:31)
[2022-05-23 08:47] VITALS: PULSE 80; O2SAT 98
== END 2022-05-23 11:11 | disposition home or self-care (01) ==
LOC: ANHED 19:06 → ANH2MED 23:27
PROVIDERS: Admitting Provider Internal Medicine; Emergency Provider Emergency Medicine; PCP Pediatrics; Visit Provider Nurse Practitioner Adult Health
DX: J18.9 Pneumonia, unspecified organism (principal); J45.909 Unspecified asthma, uncomplicated; G80.9 Cerebral palsy, unspecified; R09.89 Other specified symptoms and signs involving the circulatory and respiratory systems; R00.0 Tachycardia, unspecified; I45.10 Unspecified right bundle-branch block; R06.82 Tachypnea, not elsewhere classified; I27.20 Pulmonary hypertension, unspecified; R94.31 Abnormal electrocardiogram [ECG] [EKG]; Z99.3 Dependence on wheelchair; D72.829 Elevated white blood cell count, unspecified; Z20.822 Contact with and (suspected) exposure to COVID-19; Z77.22 Contact with and (suspected) exposure to environmental tobacco smoke (acute) (chronic); Z79.51 Long term (current) use of inhaled steroids; Z79.3 Long term (current) use of hormonal contraceptives; Z79.899 Other long term (current) drug therapy
CPT/HCPCS: 36415; 36600; 71045; 71275; 80053; 82803; 82805; 83605; 83735; 84703; 85025; 87040; 87502; 93005; 94640; 96361; 96365; 96367; 96375; 96376; 99285; A9270; C9803; G0378; J0131; J0153; J0456; J0696; J1885; J2060; J2930; J3475; J7030; J7512; Q9967; U0003; U0005

== ENCOUNTER 2024-03-28 14:52 | Emergency (ER) | payer OTHER, BC, SELFPAY ==
[2024-03-28 14:59] VITALS: BP 161/120; PULSE 106; RESP 16; TEMP 36.9; O2SAT 96
[2024-03-28 15:29] VITALS: BP 131/80; PULSE 118; RESP 18; O2SAT 98
--- NOTE | 2024-03-28 16:26 | ED.SKABFB ---
HPI - Skin/Abscess/Foreign Bdy General Chief complaint: Skin/Abscess/Foreign Body Stated complaint: Papules on back Time Seen by Provider: 03/28/24 15:18 Source: family Mode of arrival: wheelchair Limitations: clinical condition History of Present Illness HPI narrative: 23-year-old with a history of CP was brought in by family with the complaints of boil on the upper back for past several days. No fever or chills. Patient's mother states that she was in the basement along with other friends not quite sure whether she got bit by an insect. She also developed small pustules on the lower abdomen. complaint: abscess/boil Onset (ago): day(s) (4) Location: back Severity: mild Relieving factors: none Exacerbating factors: none Related Data Home Medications Medication Instructions Recorded Confirmed albuterol sulfate 0.63 mg/3 mL 0.63 mg inhalation Q6H 12/27/21 09/15/22 solution for nebulization alprazolam 0.5 mg tablet (Xanax) 0.5 mg PO QID PRN Respiratory 12/27/21 09/15/22 Distress buspirone 5 mg tablet 5 mg PO DAILY 12/27/21 09/15/22 fluticasone propionate 50 1 spray intranasal DAILY 12/27/21 09/15/22 mcg/actuation nasal spray,suspension norethindrone 1 mg-ethinyl 1 tablet PO DAILY 05/20/22 09/15/22 estradiol 20 mcg (21)-iron 75 mg (7) tablet ([place] Fe 08/18 ()) Allergies Allergy/AdvReac Type Severity Reaction Status Date / Time aripiprazole Allergy Severe INSOMNIA Verified 09/15/22 17:18 chlorpheniramine AdvReac Severe INSOMNIA Verified 09/15/22 17:18 dextromethorphan AdvReac Severe INSOMNIA Verified 09/15/22 17:18 phenylephrine AdvReac Severe INSOMNIA Verified 09/15/22 17:18 sertraline AdvReac Severe INSOMNIA Verified 09/15/22 17:18 [facility] Family History Family History Mother Asthma Other Colon cancer Social History Social History Smoking status: Never smoker Second hand tobacco smoke exposure: Yes Alcohol intake: never Substance use: never Lack of Transportation: No Lack of Food: Never True Current Housing: I Have Housing Concerned About Future Housing: No Difficulty Paying Gas/Electric Bills: No Difficulty Paying for Meds: No Currently Unemployed: No Education: High School Diploma/GED Difficulty w/ Childcare or Family Care: No Spiritual care concerns: No Exam Const: General: no acute distress Limitations: physical limitations HENMT: Head: normal to inspection Ears: Abnormal EAC present (draining ) Face/Nose/Sinus: Normal external nose present Mouth: Yes Normal oral and palatal mucosa present Eyes: Conjunctivae: conjunctivae normal Neck: Neck: normal visual inspection Chest: Chest palpation & inspection: normal inspection of the chest Resp: Effort & Inspection: normal respiratory effort Cardio: Rate: regular rate Skin: Other: has a small abscess which is draining in the upper back , skin is mildly indurated , tender on palpation Neuro: General: moves all extremities Course Course Emergency Course: Notify parents about the diagnosis. Recommended to start antibiotic will send wound cultures advised him to follow with the primary doctor Vital Signs Vital signs: Vital Signs Temperature 36.9 C 03/28/24 14:59 Pulse Rate 106 H 03/28/24 14:59 Respiratory Rate 16 03/28/24 14:59 Blood Pressure 161/120 H 03/28/24 14:59 Pulse Oximetry 96 03/28/24 14:59 Oxygen Delivery Room Air 03/28/24 14:59 Temperature 36.9 C 03/28/24 14:59 Pulse Rate 118 H 03/28/24 15:29 Respiratory Rate 18 03/28/24 15:29 Blood Pressure 131/80 03/28/24 15:29 Pulse Oximetry 98 03/28/24 15:29 Oxygen Delivery Room Air 03/28/24 14:59 Discharge Plan Discharge Clinical Impression: Abscess or cellulitis of back Patient Disposition: Home, Self-Care Condition: Stable Instructions: Antibiotic Form, Abscess
== END 2024-03-28 16:58 | disposition home or self-care (01) ==
PROVIDERS: Emergency Provider Family Medicine; PCP Pediatrics
DX: L02.212 Cutaneous abscess of back [any part, except buttock and flank] (principal); Z79.899 Other long term (current) drug therapy
CPT/HCPCS: 87070; 87081; 87181; 87205; 99283